=== PATIENT | female | born 1970 | race Caucasian/White ===

== ENCOUNTER 2017-11-07 19:05 | Emergency (ER) | payer MEDICAID, OTHER ==
[2017-11-07 21:54] LABS: URINE BLOOD (Dip) POC 2+ (NEGATIVE); URINE GLUCOSE (Dip) POC Negative (NEGATIVE); URINE KETONES (Dip) POC Negative (NEGATIVE); URINE LEUKOCYTE EST (Dip) POC 3+ (NEGATIVE); URINE NITRITE (Dip) POC Positive (NEGATIVE); URINE TOTAL PROTEIN POC Negative (NEGATIVE)
== END 2017-11-07 23:05 | disposition home or self-care (01) ==
LOC: FTE 19:05
DX: N30.01 Acute cystitis with hematuria (principal)
CPT/HCPCS: 81003; 81025; 99283